=== PATIENT | female | born 1995 | race Caucasian/White ===

== ENCOUNTER 2025-10-22 11:04 | Emergency (ER) | payer MEDICAID ==
[~2025-10-22] VITALS: Ht 167.6 cm; Wt 97.0 kg
[2025-10-22 11:19] VITALS: O2SAT 99
[2025-10-22] MEDS: KETOROLAC 15MG/ML VIAL IM ONE (12:15)
[2025-10-22] MEDS: LIDOCAINE 5% PATCH TOP SCH (12:15)
[2025-10-22] MEDS ORDERED: CYCL5TAB3 MT (13:05)
[2025-10-22 13:15] LABS: HCG SCREEN NEGATIVE
[2025-10-22] MEDS: ACETAMINOPHEN 500MG TABLET PO ONE (13:24)
[2025-10-22 13:33] VITALS: BP 121/62; PULSE 68; RESP 17; TEMP 36.7; O2SAT 100
== END 2025-10-22 13:34 | disposition home or self-care (01) ==
LOC: ER 11:04
DX: M54.31 Sciatica, right side (principal)
CPT/HCPCS: 84703; 96372; 99283; J1885; Z7610